=== PATIENT | male | born 1950 | race Two or more races ===

== ENCOUNTER 2024-05-15 11:56 | Inpatient (IN) | payer OTHER ==
[~2024-05-15] VITALS: Ht 172.7 cm; Wt 90.6 kg
[2024-05-15 12:27] LABS: Basophils # (auto) 0.1 10 ^3/uL (0-0.2); Eosinophils # (auto) 0.3 10 ^3/uL (0-0.8); Eosinophils % (auto) 2.7 % (0.0-7.0); Hematocrit 37.8 % (41.0-53.0); Lymphocytes % (auto) 25.2 % (10.0-50.0); Mean Corpuscular Hemoglobin 31.8 pg (28.0-32.0); Mean Corpuscular Hgb Conc. 34.5 g/dL (32.0-36.0); Mean Corpuscular Volume 92.3 fL (80.0-100.0); Monocytes # (auto) 0.9 10 ^3/uL (0-1.3); Monocytes % (auto) 7.2 % (0.0-12.0); Neutrophils # (auto) 7.5 10 ^3/uL (1.6-8.6); Neutrophils % (auto) 63.9 % (37.0-80.0); Nucleated Red Blood Cells % 0.1 %; Platelet Count (auto) 213 10^3/uL (140-450); Red Blood Cells 4.09 10^6/uL (4.5-5.90); Red Cell Distribution Width 12.6 % (11.8-14.3); White Blood Cell 11.8 10^3/uL (4.4-10.8)
[2024-05-15 12:29] VITALS: PULSE 72; RESP 12; O2SAT 94
[2024-05-15 12:42] LABS: INR 1.06 (0.9-1.15); Partial Thromboplastin Time 23.7 SEC (24.5-34.5); Prothrombin Time 11.2 sec (9.3-11.8)
[2024-05-15 12:50] LABS: Alanine Aminotransferase 35 U/L (7-40); Albumin 4.1 g/dL (3.2-4.8); Alkaline Phosphatase 60 U/L (46-116); Anion Gap 9 (5-15); Aspartate Aminotransferase 21 U/L (13-40); BUN/Creatinine Ratio 13.5 (10.0-20.0); Bilirubin, Total 0.8 mg/dL (0.2-1.0); Blood Urea Nitrogen 21 mg/dL (9-23); Calcium 9.5 mg/dL (8.7-10.4); Carbon Dioxide 22 mmol/L (20-30); Chloride 104 mmol/L (98-107); Glucose 373 mg/dL (74-106); Magnesium 1.6 mg/dL (1.6-2.6); Potassium 4.3 mmol/L (3.5-5.1); Sodium 135 mmol/L (136-145); Total Protein 6.4 g/dL (5.7-8.2)
[2024-05-15 13:30] LABS: Urine Bacteria None Seen /hpf (None Seen)
[2024-05-15 13:48] LABS: Urine Blood Negative /uL (Negative); Urine Clarity Clear (Clear); Urine Color Light-Yellow (Yellow); Urine Protein, UAD Negative (Negative); Urine Specific Gravity 1.016 (1.001-1.035); Urine Urobilinogen Normal (Negative); Urine WBC 1 /hpf (0 - 3)
[2024-05-15] MEDS ORDERED: EZET10TA22 PO (13:54)
[2024-05-15] MEDS ORDERED: ATOR-47 PO (13:54)
[2024-05-15] MEDS ORDERED: TERA10CA36 PO (13:54)
[2024-05-15] MEDS ORDERED: LOSA-535 PO (13:54)
[2024-05-15] MEDS ORDERED: HYDR25TA4 PO (13:54)
[2024-05-15] MEDS ORDERED: ASPI-543 PO (13:54)
[2024-05-15] MEDS ORDERED: MELO7.5T7 PO (13:54)
[2024-05-15] MEDS ORDERED: METF-929 PO (13:54)
[2024-05-15] MEDS ORDERED: GLIP10TA9 PO (13:54)
[2024-05-15] MEDS ORDERED: AMLO1TAB22 PO (13:54)
[2024-05-15] MEDS ORDERED: HYDROcodone-ACET 5/325MG TAB PO PRN (15:45)
[2024-05-15] MEDS ORDERED: ACETAMINOPHEN 325 MG TAB PO PRN (15:45)
[2024-05-15] MEDS ORDERED: ONDANSETRON HCL 4 MG/2 ML VIAL IV PRN (15:45)
[2024-05-15] MEDS ORDERED: MORPHINE SULFATE INJ 2 MG/ml SYRG IV PRN (15:45)
[2024-05-15] MEDS ORDERED: NITROGLYCERIN 0.4 MG SL TAB SL PRN (15:45)
[2024-05-15] MEDS ORDERED: DEXTROSE (50%) 50ML SYRG IV PRN (15:45)
[2024-05-15 16:45] LABS: Triglycerides 313 mg/dL (< 150)
[2024-05-15 16:46] LABS: LDL Cholesterol 35 mg/dL (< 100)
[2024-05-15 16:47] LABS: Cholesterol 103 mg/dL (< 200); HDL Cholesterol 28 mg/dL (40-59)
[2024-05-15] MEDS: ACCU-CHEK COMFORT CURVE STRIP VI SCH (17:00)
[2024-05-15] MEDS: InsuLIN REG 1unit/0.01ml Soln (100units/ml) SC SCH ×2 (17:50→22:57)
[2024-05-15] MEDS: glipiZIDE 5 MG TAB PO SCH (17:51)
[2024-05-15] MEDS: SODIUM CHLORIDE 0.9% 1,000 ML IV SCH (17:56)
[2024-05-15 19:45] VITALS: PULSE 70; RESP 15; O2SAT 93
[2024-05-15 20:28] LABS: Amphetamine Screen, Urine Neg (NEGATIVE); Barbiturate Scree,Urine Neg (NEGATIVE); Benzodiazephine Screen, Urine Neg (NEGATIVE); Cocaine Screen, Urine Neg (NEGATIVE)
[2024-05-15 20:29] LABS: Cannabinoid Screen, Urine Neg (NEGATIVE); Opiate Scree,Urine Neg (NEGATIVE); Phencyclidine Screen, Urine Neg (NEGATIVE)
[2024-05-15 21:45] VITALS: BP 144/79; PULSE 88; RESP 18; TEMP 98.2; O2SAT 95
[2024-05-15] MEDS: ATORVASTATIN 20 MG TAB PO SCH (23:00)
[2024-05-15] MEDS: SODIUM CHLOR 0.9% PF (SALINE LOCK) 10ML VIAL/SYR IV SCH (23:08)
[2024-05-15 23:30] VITALS: PULSE 88; RESP 18; O2SAT 95
[2024-05-16] VITALS (14 sets, daily range): BP systolic 105–145; BP diastolic 58–83; PULSE 56–74; RESP 13–22; TEMP 97.4–98.6; O2SAT 95–96
[2024-05-16 05:52] LABS: Basophils # (auto) 0.1 10 ^3/uL (0-0.2); Basophils % (auto) 0.9 % (0.0-2.0); Eosinophils # (auto) 0.5 10 ^3/uL (0-0.8); Eosinophils % (auto) 4.8 % (0.0-7.0); Hematocrit 37.6 % (41.0-53.0); Hemoglobin 13.1 g/dL (13.5-17.5); Lymphocytes # (auto) 3.6 10 ^3/uL (0.4-5.4); Lymphocytes % (auto) 31.5 % (10.0-50.0); Mean Corpuscular Hemoglobin 31.8 pg (28.0-32.0); Monocytes # (auto) 1.2 10 ^3/uL (0-1.3); Monocytes % (auto) 10.3 % (0.0-12.0); Neutrophils % (auto) 52.5 % (37.0-80.0); Nucleated Red Blood Cells % 0.1 %; Platelet Count (auto) 226 10^3/uL (140-450); Red Blood Cells 4.13 10^6/uL (4.5-5.90); Red Cell Distribution Width 12.2 % (11.8-14.3); White Blood Cell 11.4 10^3/uL (4.4-10.8)
[2024-05-16 06:08] LABS: Alanine Aminotransferase 35 U/L (7-40); Albumin 4.3 g/dL (3.2-4.8); Alkaline Phosphatase 52 U/L (46-116); Anion Gap 6 (5-15); Aspartate Aminotransferase 22 U/L (13-40); BUN/Creatinine Ratio 14.6 (10.0-20.0); Blood Urea Nitrogen 18 mg/dL (9-23); Calcium 9.5 mg/dL (8.7-10.4); Carbon Dioxide 23 mmol/L (20-30); Chloride 110 mmol/L (98-107); Potassium 3.7 mmol/L (3.5-5.1); Sodium 139 mmol/L (136-145)
[2024-05-16 06:09] LABS: Bilirubin, Total 0.9 mg/dL (0.2-1.0); Glucose 123 mg/dL (74-106); Total Protein 6.5 g/dL (5.7-8.2)
[2024-05-16] MEDS: LOSARTAN POTASSIUM 50 MG TAB PO SCH (09:30)
[2024-05-16] MEDS: TERAZOSIN HCL 5 MG CAP PO SCH (09:30)
[2024-05-16] MEDS: hydroCHLOROthiazide 25 MG TAB PO SCH (09:30)
[2024-05-16] MEDS: ASPirin 81 mg TAB PO SCH (09:31)
[2024-05-16] MEDS: amLODIPine BESYLATE 5 MG TAB PO SCH ×2 (09:31→10:00)
[2024-05-16] MEDS: DOCUSATE SOD 100 MG CAP PO PRN (09:35)
[2024-05-16] MEDS ORDERED: ENOXAPARIN SOD 40 MG/0.4 ML SYRINGE SC SCH (10:00)
[2024-05-16 10:38] LABS: Creatinine, Urine 46.71 mg/dL (30.0-125.0)
[2024-05-16] MEDS: IODIXANOL 320MG/ML 100ML BTL IV ONE (11:43)
[2024-05-16] MEDS: HEPARIN SODIUM (PORCINE) 5000 UNITS/ML 1ML VIAL ONE (11:56)
[2024-05-16] MEDS: LIDOCAINE 2%HCL (LOCAL ANESTH.) INJ 20ML MDV ONE (11:56)
[2024-05-16] MEDS: fentaNYL CITRATE 100 MCG/2 ML VL ONE (11:56)
[2024-05-16] MEDS: VERAPAMIL 2.5MG/ML INJ 2ML VIAL IV ONE (11:56)
[2024-05-16] MEDS: MIDAZOLAM HCL 2MG/2ML 2ml VIAL (1mg/ml) ONE (11:56)
[2024-05-16] MEDS ORDERED: IODIXANOL 320MG/ML 100ML BTL IV ONE (13:01)
[2024-05-16] MEDS ORDERED: HEPARIN SODIUM (PORCINE) 5000 UNITS/ML 1ML VIAL ONE (13:01)
[2024-05-16] MEDS: INSULIN LANTUS (GLARGINE) 1 /0.01ml (100units/ml) SC SCH (21:23)
[2024-05-17] MEDS ORDERED: ENOXAPARIN SOD 40 MG/0.4 ML SYRINGE SC SCH (10:00)
== END 2024-05-17 03:45 | disposition short-term general hospital (02) | DRG 280 ==
LOC: EDBD 11:56 → ER 11:56 → TELE-WESTW 15:38 → TELE 16:10 → TELE-WESTW 21:45
PROVIDERS: ADMIT Internal Medicine Pulmonary Disease; ATTEND Emergency Medicine
PROC: B211YZZ Fluoroscopy of Multiple Coronary Arteries using Other Contrast (ICD-10-PCS; principal; 2024-05-16)
PROC: 4A023N7 Measurement of Cardiac Sampling and Pressure, Left Heart, Percutaneous Approach (ICD-10-PCS; 2024-05-16)
PROC: 4A033BC Measurement of Arterial Pressure, Coronary, Percutaneous Approach (ICD-10-PCS; 2024-05-16)
DX: I21.4 Non-ST elevation (NSTEMI) myocardial infarction (principal); N17.0 Acute kidney failure with tubular necrosis; I25.10 Atherosclerotic heart disease of native coronary artery without angina pectoris; C43.9 Malignant melanoma of skin, unspecified; E11.65 Type 2 diabetes mellitus with hyperglycemia; E78.1 Pure hyperglyceridemia; I10 Essential (primary) hypertension; N40.0 Benign prostatic hyperplasia without lower urinary tract symptoms; I35.0 Nonrheumatic aortic (valve) stenosis; Z90.49 Acquired absence of other specified parts of digestive tract; I25.2 Old myocardial infarction; Z95.5 Presence of coronary angioplasty implant and graft; Z85.828 Personal history of other malignant neoplasm of skin; Z87.442 Personal history of urinary calculi; Z85.820 Personal history of malignant melanoma of skin; Z87.891 Personal history of nicotine dependence; Z79.82 Long term (current) use of aspirin; Z79.899 Other long term (current) drug therapy; Z95.2 Presence of prosthetic heart valve
CPT/HCPCS: 36415; 71045; 80053; 80061; 80307; 81001; 82570; 82962; 83036; 83735; 84300; 84443; 84484; 85025; 85610; 85730; 93005; 93306; 93458; 99152; 99291; G0378; J1815; J2250; Q9967

== ENCOUNTER 2024-09-06 20:55 | Emergency (ER) | payer OTHER ==
[~2024-09-06] VITALS: Ht 172.7 cm; Wt 88.9 kg
[~2024-09-06 20:55] MED LIST: AMLO1TAB22 PO; ASPI-543 PO; ATOR-47 PO; EZET10TA22 PO; GLIP10TA9 PO; HYDR25TA4 PO; LOSA-535 PO; MELO7.5T7 PO; METF-929 PO; TERA10CA36 PO
[2024-09-06] MEDS: SODIUM CHLORIDE 0.9% 1,000 ML IV ONE (21:15)
--- NOTE | 2024-09-06 21:15 | ED.PDOC ---
GI ASSESSMENT HPI Comments 74-year-old male who came to ER for constipation. Patient does have history of hypertension, diabetes, dyslipidemia, skin cancer, NH, status post CABG. Patient states his last bowel movement was over 3 days ago, and yesterday she started experiencing lower back pains and lower abdominal pains. Denies any nausea or vomiting. Patient went to [place] [facility], was prescribed stool softeners, MiraLax, Sitz bath but has offered no relief of his constipation Chief Complaint: Constipation Time Seen by MD: 21:19 Primary Care Provider: Yovani Reviewed Notes: Nurses Notes Allergies: Coded Allergies: NO KNOWN ALLERGIES (Unverified , 05/15/24) Home Meds Reported Medications Meloxicam (Meloxicam) 7.5 Mg Tab, 1 TAB PO DAILY, #30 TAB 2 Refills 05/15/24 Aspirin (Aspir-Low) 81 Mg Tab, 81 MG PO DAILY, MG 05/15/24 Terazosin Hcl (Terazosin Hcl) 10 Mg Cap, 10 MG PO DAILY for 30 Days, MG 05/15/24 Ezetimibe (Zetia) 10 Mg Tab, 10 MG PO DAILY, TAB 05/15/24 Atorvastatin Calcium (ATORVASTATIN CALCIUM) 80 Mg Tab, 80 MG PO DAILY, TAB 05/15/24 Losartan Potassium (Losartan Potassium) 100 Mg Tab, 100 MG PO DAILY for 30 Days, MG 05/15/24 Amlodipine Besylate (Amlodipine Besylate) 5 Mg Tab, 2.5 MG PO DAILY, MG 05/15/24 Hydrochlorothiazide (Hydrochlorothiazide) 25 Mg Tab, 25 MG PO DAILY, MG 05/15/24 Glipizide (Glipizide) 10 Mg Tab, 10 MG PO BID, MG 05/15/24 Metformin HCl (Metformin Hydrochloride) 1,000 Mg Tab, 1000 MG PO BID, TAB 05/15/24 Information Source: Patient Mode of Arrival: Ambulatory Timing: Days Duration: Since onset Prehospital treatment: None Quality: Aching Vomitus: None Stool: Impaction Severity: Moderate Recent: None Pain Location: Suprapubic, Other (Lower back pain) Modifying Factors: Nothing Associated sign and symptoms: Constipation, Abdominal Pain, Other (Back pains) Past Medical History PAST MEDICAL HISTORY: DM, High Lipids, HTN, NH Past Medical History (Other): Squamous cell carcinoma, skin cancer, BPH Surgical History: CABG, Cholecystectomy Family History Family History: Reviewed,noncontributory to illness Social History Smoker: Non-Smoker Alcohol: Denies ETOH Use Drugs: Denies Drug Use Lives In: Home Constitutional: denies: chills, diaphoresis, fatigue, fever, malaise, sweats, weakness, others EENTM: denies: blurred vision, double vision, ear bleeding, ear discharge, ear drainage, ear pain, ear ringing, eye pain, eye redness, hearing loss, mouth pain, mouth swelling, nasal discharge, nose bleeding, nose congestion, nose pain, photophobia, tearing, throat pain, throat swelling, voice changes, others Respiratory: denies: cough, hemoptysis, orthopnea, SOB at rest, shortness of breath, SOB with excertion, stridor, wheezing, others Cardiovascular: denies: chest pain, dizzy spells, diaphoresis, Dyspnea on exertion, edema, irregular heart beat, left arm pain, lightheadedness, palpitations, PND, syncope, others Gastrointestinal: reports: abdominal pain, constipated; denies: abdomen distended, blood streaked bowels, diarrhea, dysphagia, difficulty swallowing, hematemesis, melena, nausea, poor appetite, poor fluid intake, rectal bleeding, rectal pain, vomiting, others Genitourinary: denies: burning, dysuria, flank pain, frequency, hematuria, i ncontinence, penile discharge, penile sore, pain, testicle pain, testicle swelling, urgency, others Neurological: denies: dizziness, fainting, headache, left sided numbness, left sided weakness, numbness, paresthesia, pre-existing deficit, right sided numbness, right sided weakness, seizure, speech problems, tingling, tremors, weakness, others Musculoskeletal: reports: back pain; denies: gout, joint pain, joint swelling, muscle pain, muscle stiffness, neck pain, others Integumetry: denies: bruises, change in color, change in hair/nails, dryness, l aceration, lesions, lumps, rash, wounds, others Allergic/Immunocompromised: denies: Difficulty Healing, Frequent Infections, Hives, Itching, others Hematologic/Lymphatic: denies: anemia, blood clots, easy bleeding, easy bruising, swollen glands, others Endocrine: denies: excessive hunger, excessive sweating, excessive thirst, excessive urination, flushing, intolerance to cold, intolerance to heat, unexplained weight gain, unexplained weight loss, others Psychiatric: denies: anxiety, bipolar disorder, depression, hopeless, panic disorder, schizophrenia, sleepless, suicidal, others Physical Exam General Appearance: No Apparent Distress, Normal HEENT: Normal ENT Inspection, Pharynx Normal, TMs Normal Neck: Full Range of Motion, Non-Tender, Normal, Normal Inspection Respiratory: Chest Non-Tender, Lungs Clear, No Accessory Muscle Use, No Respiratory Distress, Normal Breath Sounds Cardiovascular: No Edema, No JVD, No Murmur, No Gallop, Normal Peripheral Pulses, Regular Rate/Rhythm Breast Exam: Deferred Gastrointestinal: Diffuse, Distended, No Organomegaly, No Pulsatile Mass, Normal Bowel Sounds, Tenderness Genitalia: Deferred Pelvic: Deferred Rectal: Deferred Extremities: No calf tenderness, Normal capillary refill, Normal inspection, Normal range of motion, Non-tender, No pedal edema Musculoskeletal : Apperance: Normal Neurologic: Alert, brine tank tender II-XII nml as Tested, No Motor Deficits, Normal Affect, Normal Mood, No Sensory Deficits Cerebellar Function: Normal Reflexes: Normal Skin: Dry, Normal Color, Warm Lymphatic: No Adenopathy Was a procedure done? Was a procedure done?: No GI differential Dx Differential Diagnosis: Bowel Obstruction, Constipation, Diverticular disease, Gastritis/PUD, Gastroenteritis, Hernia X-Ray, Labs, Meds, VS Vital Signs Date Time Temp Pulse Resp B/P (MAP) Pulse Ox O2 Delivery O2 Flow Rate FiO2 09/06/24 22:09 97.7 90 18 146/73 (97) 96 97.7 09/06/24 21:00 97.7 107 19 164/109 (127) 95 Lab Test 09/06/24 23:35 09/06/24 21:30 Range/Units Lactic Acid Level 2.1 *H 3.2 *H 0.4-2.0 mmol/L White Blood Count 17.7 H 4.4-10.8 10^3/uL Red Blood Count 5.39 4.5-5.90 10^6/uL Hemoglobin 15.7 13.5-17.5 g/dL Hematocrit 47.1 41.0-53.0 % Mean Corpuscular Volume 87.4 80.0-100.0 fL Mean Corpuscular Hemoglobin 29.1 28.0-32.0 pg Mean Corpuscular Hemoglobin Concent 33.3 32.0-36.0 g/dL Red Cell Distribution Width 14.0 11.8-14.3 % Platelet Count 227 140-450 10^3/uL Mean Platelet Volume 7.1 6.9-10.8 fL Neutrophils (%) (Auto) 76.8 37.0-80.0 % Lymphocytes (%) (Auto) 15.1 10.0-50.0 % Monocytes (%) (Auto) 7.5 0.0-12.0 % Eosinophils (%) (Auto) 0.0 0.0-7.0 % Basophils (%) (Auto) 0.6 0.0-2.0 % Neutrophils # (Auto) 13.6 H 1.6-8.6 10 ^3/uL Lymphocytes # (Auto) 2.7 0.4-5.4 10 ^3/uL Monocytes # (Auto) 1.3 0-1.3 10 ^3/uL Eosinophils # (Auto) 0 0-0.8 10 ^3/uL Basophils # (Auto) 0.1 0-0.2 10 ^3/uL Nucleated Red Blood Cells 0.1 % Sodium Level 134 L 136-145 mmol/L Potassium Level 4.6 3.5-5.1 mmol/L Chloride Level 99 98-107 mmol/L Carbon Dioxide Level 24 20-31 mmol/L Anion Gap 11 5-15 Blood Urea Nitrogen 20 9-23 mg/dL Creatinine 1.59 H 0.700-1.30 mg/dL Glomerular Filtration Rate Calc 45 >90 mL/min BUN/Creatinine Ratio 12.6 10.0-20.0 Serum Glucose 318 H 74-106 mg/dL Calcium Level 11.5 H 8.7-10.4 mg/dL Total Bilirubin 0.7 0.2-1.0 mg/dL Aspartate Amino Transferase (AST) 25 13-40 U/L Alanine Aminotransferase (ALT) 37 7-40 U/L Alkaline Phosphatase 71 46-116 U/L Total Protein 8.1 5.7-8.2 g/dL Albumin 5.1 H 3.2-4.8 g/dL Current Medications Medications (Trade) Dose Ordered Sig/Toma Route Start Time Stop Time Status Last Admin Sodium Chloride 1,000 ml @ 1,000 mls/hr Q1H ONCE IV 12/6/24 21:15 09/06/24 22:14 DC 09/06/24 21:15 Time of 1ST Reevaluation: 21:14 Reevaluation 1ST: Unchanged Patient Education/Counseling: Diagnosis, Treatment Family Education/Counseling: No Family Present Departure 1 Departure Time of Disposition: 00:41 ([place] [facility] [id number] presented with abdominal pain that was concerning for possible appendicits, gastritis, cholecystitis, colitis, gastroenteritis, sbo, or orther possible surgical emergency. Data: 1. I ordered and reviewed the result of at least 3 labs including a CBC, BMP, and Urinalysis. 2. I independently interpreted the following tests: CT Abdoment and Pelvis is concerning for colitis .Risk:This patient has a high risk of morbidity due to further diagnostic testing or treatment and may suffer from an acute abdominal process disorder. Workup reveals diffuse colitis and patient should be admitted for further workup. and possible expert consultation. Patient will be transferred to [place]) Impression: Primary Impression: Abdominal pain Qualified Codes: R10.84 - Generalized abdominal pain Additional Impression: Enterocolitis Disposition: 02 SHORT TERM HOSPITAL Admit to: Med Surg Condition: Serious Critical Care Note Critical Care Time?: No Stability Stability form required: No Heart Score Heart Score: Heart Score Response (Comments) Value History N/A 0 EKG N/A 0 Age N/A 0 Risk Factors N/A 0 Troponin N/A 0 Total 0 I personally scribed for MARYLIN CARRERO MD ([email or web address]) on 09/06/24 at 21:15. Electronically submitted by Lonnie Boone ([employer]). I personally scribed for MARYLIN CARRERO MD ([email or web address]) on 09/06/24 at 21:20. Electronically submitted by Lonnie Boone ([employer]). MARYLIN CARRERO MD Sep 06, 2024 21:15
[2024-09-06 22:01] LABS: Alanine Aminotransferase 37 U/L (7-40); Alkaline Phosphatase 71 U/L (46-116); Anion Gap 11 (5-15); Aspartate Aminotransferase 25 U/L (13-40); BUN/Creatinine Ratio 12.6 (10.0-20.0); Blood Urea Nitrogen 20 mg/dL (9-23); Carbon Dioxide 24 mmol/L (20-31); Chloride 99 mmol/L (98-107); Potassium 4.6 mmol/L (3.5-5.1)
[2024-09-06 22:02] LABS: Bilirubin, Total 0.7 mg/dL (0.2-1.0); Total Protein 8.1 g/dL (5.7-8.2)
[2024-09-06 22:16] LABS: Albumin 5.1 g/dL (3.2-4.8); Basophils # (auto) 0.1 10 ^3/uL (0-0.2); Basophils % (auto) 0.6 % (0.0-2.0); Calcium 11.5 mg/dL (8.7-10.4); Eosinophils # (auto) 0 10 ^3/uL (0-0.8); Glucose 318 mg/dL (74-106); Hematocrit 47.1 % (41.0-53.0); Hemoglobin 15.7 g/dL (13.5-17.5); Lymphocytes # (auto) 2.7 10 ^3/uL (0.4-5.4); Lymphocytes % (auto) 15.1 % (10.0-50.0); Mean Corpuscular Hemoglobin 29.1 pg (28.0-32.0); Mean Corpuscular Hgb Conc. 33.3 g/dL (32.0-36.0); Mean Corpuscular Volume 87.4 fL (80.0-100.0); Monocytes # (auto) 1.3 10 ^3/uL (0-1.3); Monocytes % (auto) 7.5 % (0.0-12.0); Neutrophils # (auto) 13.6 10 ^3/uL (1.6-8.6); Neutrophils % (auto) 76.8 % (37.0-80.0); Nucleated Red Blood Cells % 0.1 %; Platelet Count (auto) 227 10^3/uL (140-450); Red Blood Cells 5.39 10^6/uL (4.5-5.90); Sodium 134 mmol/L (136-145); White Blood Cell 17.7 10^3/uL (4.4-10.8)
[2024-09-06 22:26] LABS: Lactic Acid w/Reflex 3.2 mmol/L (0.4-2.0)
[2024-09-06] MEDS: ONDANSETRON HCL 4 MG/2 ML VIAL IV ONE (22:54)
[2024-09-06] MEDS: IOHEXOL 300 MG/ML 100ML BOTTLE IJ ONE (22:54)
--- NOTE | 2024-09-06 23:48 | DVH ---
CLINICAL HISTORY: abdominal pain, constipation, distended tender abdomen TECHNIQUE: CT of the abdomen and pelvis was performed with intravenous contrast. This exam was perfor med according to our departmental dose optimization program. Up-to-date CT equipment and radiation do se reduction techniques are utilized as appropriate. WID: COMPARISON: None FINDINGS: Lower Thorax: Linear bibasilar scarring or atelectasis. Normal-sized heart. Prior median sternotomy a nd aortic valve prosthesis partially imaged. Marked partially imaged coronary artery calcifications. Liver and Biliary system: Unremarkable liver. Prior cholecystectomy. No biliary ductal dilatation. Spleen: Unremarkable. Adrenal Glands and Kidneys: Normal adrenal glands. There is bilateral renal cortical scarring. There is no hydronephrosis in either kidney. There are small bilateral renal hypodensities which are too sm all to characterize though may reflect cysts. Pancreas and Retroperitoneum: Unremarkable. Aorta and Major Vessels: Aortoiliac vessels are patent and normal caliber containing moderate mixed a therosclerotic plaque. Bowel, Mesentery and Peritoneal space: Normal caliber small and large bowel. Moderate retained stool in the distal colon. Fluid-filled contents in the ascending and most of the transverse colon. Lashay l appendix. There are scattered fluid-filled distal small bowel loops. There is no free air or fluid collection. Pelvis: Moderate distention of the urinary bladder. There is mild prostatomegaly containing dystrophi c calcifications. There is no pelvic lymphadenopathy. Abdominal wall and Osseous Structures: Small fat containing bilateral inguinal hernias. Multilevel lo wer thoracic and lumbar spondylosis no destructive osseous lesion. IMPRESSION: 1. Fluid containing contents in the proximal colon and and scattered distal small bowel loops which c ould be physiologic or related to enterocolitis and May manifest as loose stools and/or diarrhea. 2. Moderate retained stool in the distal colon . 3. No bowel obstruction, fluid collection, or free air. Normal appendix 4. Mild prostatomegaly 5. Partially imaged prior median sternotomy and aortic valve prosthesis
[2024-09-07] MEDS: FLEET ENEMA(ADULT) 135 ML PR ONE (03:54)
[2024-09-07] MEDS: metroNIDAZOLE 500MG/100ML 100 ML IV ONE (03:56)
[2024-09-07] MEDS: ceFAZolin 2 GM/D5W50ml 50 ML IV ONE (03:56)
[2024-09-07 03:57] VITALS: BP 132/74; PULSE 88; RESP 18; TEMP 97.6; O2SAT 97
== END 2024-09-07 04:00 | disposition short-term general hospital (02) ==
LOC: ER 20:55
DX: K52.9 Noninfective gastroenteritis and colitis, unspecified (principal); I10 Essential (primary) hypertension; E11.9 Type 2 diabetes mellitus without complications; E78.5 Hyperlipidemia, unspecified; I25.2 Old myocardial infarction; Z85.828 Personal history of other malignant neoplasm of skin; Z90.49 Acquired absence of other specified parts of digestive tract; Z95.1 Presence of aortocoronary bypass graft; Z79.1 Long term (current) use of non-steroidal anti-inflammatories (NSAID); Z79.82 Long term (current) use of aspirin; Z79.84 Long term (current) use of oral hypoglycemic drugs; Z79.899 Other long term (current) drug therapy
CPT/HCPCS: 36415; 74177; 80053; 83605; 85025; 96360; 96361; 99285; J0690; J7030; Q9967